=== PATIENT | female | born 1995 | race American Indian/Alaskan Native ===

== ENCOUNTER 2020-11-08 21:28 | Emergency (ER) | payer BC ==
[2020-11-08 22:55] VITALS: BP 122/81
--- NOTE | 2020-11-08 23:29 | XRay Report ---
Bilateral hands INDICATION: Thumb pain FINDINGS: MCP joints and IP joints within the right hand appear normal. Base of the thumb appears nor mal. The left MCP joints and IP joints appear normal. No acute fractures seen. IMPRESSION: No acute abnormalities in either hand. Signer Name: Jaxon Vidales MD Signed: 11/08/2020 11:24 PM Workstation Name: [email or web address]
--- NOTE | 2020-11-09 00:45 | Emergency Department Report ---
ED General Adult HPI - General Chief complaint: Extremity Injury, Upper Stated complaint: PAIN BOTH WRISTS Time Seen by Provider: 11/09/20 00:08 Source: patient Mode of arrival: Ambulatory Limitations: No Limitations - History of Present Illness Initial comments: 24-year-old -[place] female patient presents with complaints of bilateral wrist and thumb pain x1 month, worsening over the past week. Patient states ever since she has had her and has been picking her up, the pain has been worsening. Pain worsens with movement of the thumbs and bending of the wrist. She denies any swelling, fever/chills/sweats, skin changes, or difficulty moving her thumb or wrist. 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 Patient rates her pain as a 7/10 in severity and denies trying any OTC medications for her symptoms. - Related Data Previous Rx's Medication Instructions Recorded Last Taken Type Diclofenac Sodium [Arthritis Pain] 1 gm TP QID PRN #1 gel..gram. 11/09/20 Unknown Rx Naproxen 500 mg PO BID PRN #20 tablet 11/09/20 Unknown Rx Allergies Allergy/AdvReac Type Severity Reaction Status Date / Time No Known Allergies Allergy Unverified 11/08/20 22:55 ED Review of Systems ROS: Stated complaint: PAIN BOTH WRISTS Other details as noted in HPI Constitutional: denies: fever, malaise Musculoskeletal: arthralgia. denies: joint swelling Neurological: denies: numbness, paresthesias ED Past Medical Hx - Past Medical History Previous Medical History?: No - Surgical History Past Surgical History?: No - Social History Smoking Status: Never Smoker Substance Use Type: None - Medications Home Medications: Home Medications Medication Instructions Recorded Confirmed Last Taken Type Diclofenac Sodium [Arthritis Pain] 1 gm TP QID PRN #1 gel..gram. 11/09/20 Unknown Rx Naproxen 500 mg PO BID PRN #20 tablet 11/09/20 Unknown Rx ED Physical Exam - General Limitations: No Limitations General appearance: alert, in no apparent distress - Head Head exam: Present: atraumatic, normocephalic - Eye Eye exam: Absent: scleral icterus - Respiratory Respiratory exam: Absent: respiratory distress - Cardiovascular Cardiovascular Exam: Present: regular rate - Extremities Exam Extremities exam: Present: other (Tenderness to palpation noted bilaterally to lateral wrist with positive Rachel's test bilaterally; no swelling or skin changes noted; normal perfusion and sensation noted with full range of motion of the wrist bilateral and finger) - Neurological Exam Neurological exam: Present: alert, oriented X3 - Psychiatric Psychiatric exam: Present: normal affect, normal mood - Skin Skin exam: Present: warm, dry, intact, normal color. Absent: rash ED Course Vital Signs 11/08/20 22:47 Temperature 98.4 F Pulse Rate 82 Respiratory 16 Rate Blood Pressure 122/81 O2 Sat by Pulse 100 Oximetry ED Medical Decision Making - Medical Decision Making 24-year-old -[place] female patient presents with complaints of bilateral wrist and thumb pain x1 month, worsening over the past week. Patient states ever since she has had her and has been picking her up, the pain has been worsening. Pain worsens with movement of the thumbs and bending of the wrist. She denies any swelling, fever/chills/sweats, skin changes, or difficulty moving her thumb or wrist. 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 Patient rates her pain as a 7/10 in severity and denies trying any OTC medications for her symptoms. We will treat for de Quervain's tenosynovitis of the wrist with wrist splints and NSAIDs. Recommend follow-up with orthopedics as needed. Patient is well- appearing, her vitals are within normal limits, she is stable for discharge home. Strict return precautions were discussed in detail with patient who verbalizes understanding. Critical care attestation.: If time is entered above; I have spent that time in minutes in the direct care of this critically ill patient, excluding procedure time. ED Disposition Clinical Impression: Bilateral wrist pain Disposition: DC-01 TO HOME OR SELFCARE Is pt being admited?: No Condition: Stable Instructions: De Quervain's Tenosynovitis Prescriptions: Diclofenac Sodium [Arthritis Pain] 1 gm TP QID PRN #1 gel..gram. PRN Reason: pain Naproxen 500 mg PO BID PRN #20 tablet PRN Reason: pain Referrals: FRANK NEGRON MD [Staff Physician] - as needed
== END 2020-11-09 01:15 | disposition home or self-care (01) ==
LOC: ED 21:28
DX: M25.531 Pain in right wrist (principal); M25.532 Pain in left wrist; Z79.899 Other long term (current) drug therapy